=== PATIENT | male | born 1965 | race Hispanic/Latino ===

== ENCOUNTER → 2019-04-28 | Outpatient (CLI) | payer MEDICAID, OTHER | END | disposition home or self-care (01) | LOC: SLP 20:42 | PROVIDERS: ATTEND Family Medicine | DX: G47.33 Obstructive sleep apnea (adult) (pediatric) (principal) | CPT/HCPCS: 95810 ==

== ENCOUNTER → 2019-05-26 | Outpatient (CLI) | payer MEDICAID | END | disposition home or self-care (01) | LOC: SLP 20:06 | PROVIDERS: ATTEND Family Medicine | DX: G47.30 Sleep apnea, unspecified (principal) | CPT/HCPCS: 95811 ==

== ENCOUNTER → 2020-03-29 | Outpatient (CLI) | payer MEDICAID ==
[~2020-03-29] MED LIST: IOHEXOL-350 50ML VIAL IV ONE
== END | disposition home or self-care (01) ==
LOC: RAH 08:01
PROVIDERS: ATTEND Family Medicine
DX: R19.09 Other intra-abdominal and pelvic swelling, mass and lump (principal); R59.9 Enlarged lymph nodes, unspecified
CPT/HCPCS: 74170; Q9967

== ENCOUNTER 2022-01-03 07:50 | Day surgery (SDC) | payer MEDICAID ==
[2021-12-28 12:53] LABS: BASOPHILS % (AUTO) 0.4 % (0.0-5.0); EOSINOPHILS % (AUTO) 1.5 % (0.0-8.0); LYMPHOCYTES % (AUTO) 22.3 % (21.0-51.0); MEAN CORPUSCULAR HEMOGLOBIN 28.2 pg (27.0-33.0); MEAN CORPUSCULAR HGB CONC 32.9 g/dL (32.0-36.0); MEAN CORPUSCULAR VOLUME 85.8 fL (79-99); MONOCYTES % (AUTO) 5.7 % (3.0-13.0); NEUTROPHILS % (AUTO) 69.7 % (40.0-77.0); PLATELET COUNT (AUTO) 218 K/uL (130-400); RED BLOOD CELL COUNT(AUTO) 5.71 MIL/uL (4.50-6.20); RED CELL DISTRIBUTION WIDTH 14.6 % (11.0-15.5); WHITE BLOOD COUNT (AUTO) 9.1 K/uL (4.8-10.8)
[2021-12-28 13:04] LABS: POTASSIUM 4.1 mmol/L (3.5-5.1)
[2021-12-28 13:37] LABS: APPEARANCE,URINE CLEAR (CLEAR); BILIRUBIN,URINE NEGATIVE (NEGATIVE); COLOR,URINE LIGHT-YELLOW (YELLOW); GLUCOSE, URINE (UA) >=1000 mg/dL (NEGATIVE); KETONES,URINE NEGATIVE (NEGATIVE); LEUKOCYTE ESTERASE ,URINE NEGATIVE Leu/uL (NEGATIVE); NITRATE,URINE NEGATIVE (NEGATIVE); OCCULT BLOOD,URINE NEGATIVE (NEGATIVE); PROTEIN,URINE NEGATIVE (NEGATIVE); UROBILINOGEN,URINE 0.2 mg/dL (0.2-1.0)
[2021-12-28 13:38] LABS: MUCUS,URINE RARE LPF (None Seen); RBC,URINE 0-1 /HPF (0-1); SQUAMOUS EPITHELIAL CELL,UR RARE /HPF (0-2); WBC,URINE 0-1 /HPF (0-1)
[2022-01-01 14:00] VITALS: BP 162/86
[2022-01-03] VITALS (17 sets, daily range): BP systolic 126–158; BP diastolic 72–96
[~2022-01-03] VITALS: Ht 170.2 cm; Wt 161.0 kg
[~2022-01-03 07:50] MED LIST changes: +GENTAMICIN 80 MG/NS 100 ML PB 100 ML IV SCH; -IOHEXOL-350 50ML VIAL IV ONE
[2022-01-03] MEDS ORDERED: 0.9%NACL 1000ML 1,000 ML IV ONE (08:04)
[2022-01-03] MEDS: CEFTRIAXONE 1G VIAL IVP SCH ×2 (08:38→11:01)
[2022-01-03] MEDS ORDERED: GLIP5TAB11 PO (10:23)
[2022-01-03] MEDS ORDERED: METF-446 PO (10:23)
[2022-01-03] MEDS ORDERED: ATOR40TA71 PO (10:23)
[2022-01-03] MEDS ORDERED: DAPA10TA PO (10:23)
[2022-01-03] MEDS ORDERED: FAMO20TA8 PO (10:23)
[2022-01-03] MEDS ORDERED: LISI40TA9 PO (10:23)
[2022-01-03] MEDS ORDERED: ROCURONIUM 10MG/1ML SYR 10 MG/ML ML ONE (11:07)
[2022-01-03] MEDS ORDERED: PROPOFOL 10 MG/ML 20ML VIAL IV ONE (11:07)
[2022-01-03] MEDS ORDERED: SUCCINYLCHOLINE CHLORIDE 20 MG/ML 10 ML VIAL ONE (11:07)
[2022-01-03] MEDS ORDERED: FENTANYL CITRATE PF 50 MCG/1 ML 2ML VIAL ONE (11:21)
== END 2022-01-03 13:35 | disposition home or self-care (01) ==
LOC: DAH 07:50
PROVIDERS: ATTEND Urology
DX: C61 Malignant neoplasm of prostate (principal); E66.01 Morbid (severe) obesity due to excess calories; R97.20 Elevated prostate specific antigen [PSA]; E11.9 Type 2 diabetes mellitus without complications; I10 Essential (primary) hypertension; G47.33 Obstructive sleep apnea (adult) (pediatric); M19.90 Unspecified osteoarthritis, unspecified site; Z79.899 Other long term (current) drug therapy; Z79.01 Long term (current) use of anticoagulants
CPT/HCPCS: 80048; 85025; 87088; 87426; 81001; 36415; 71045; 93005; 55700; 82948 ×2; 88305; 76942; 76872; A6260; J0330; J7030; J0696; J3490; J1580; A4215 ×2; A4649; A4222; A4221; A4663; A4223 ×2; A4600; J2704; J3010

== ENCOUNTER → 2023-12-30 | Outpatient (CLI) | payer OTHER ==
[~2023-12-30] MED LIST changes: +ATOR40TA71 PO; +DAPA10TA PO; +FAMO20TA8 PO; -GENTAMICIN 80 MG/NS 100 ML PB 100 ML IV SCH; +GLIP5TAB15 PO; +LISI40TA9 PO; +METF-446 PO
== END | disposition home or self-care (01) ==
LOC: RAH 15:18
PROVIDERS: ATTEND Internal Medicine
DX: M47.816 Spondylosis without myelopathy or radiculopathy, lumbar region (principal); M54.6 Pain in thoracic spine; M54.50 Low back pain, unspecified
CPT/HCPCS: 72070; 72100